=== PATIENT | male | born 1975 | race Caucasian/White ===

== ENCOUNTER 2019-10-12 14:52 | Emergency (ER) | payer BC ==
[~2019-10-12] VITALS: Ht 180.3 cm; Wt 93.0 kg
[2019-10-12 15:00] VITALS: BP 124/70
--- NOTE | 2019-10-12 16:00 | NUR ---
Patient transferred to bed 4 via wheelchair. RN evaluating patient at bedside.
--- NOTE | 2019-10-12 16:24 | NUR ---
C/O NUMBNESS AND THINGLING TO HANDS, FEEET, AND FACE X 1 1/2HR AGO. LUNG SOUNDS CLEAR ALL THORUGHOUT. PT VOMITTED ONCE. ABD IS SOFT, ROUND, NONTENDER. CAP REFILL < 3. CMS INTACT ON BUE AND BLE. VSS. NO SOB OR CHEST TIGHTNESS PRESENT. SKIN IS NORMAL, WARM TO TOUCH. DENIES ANY PAIN. A & O X4. STEADY GAIT. NKA. PMH: PREDIABETIC, HIGH CHOLESTEROL, HYPOTHYROID.
[2019-10-12] MEDS ORDERED: ACETAMINOPHEN 120 MG SUPP RC ONE (16:50)
[2019-10-12 16:59] LABS: BASOPHILS # (AUTO) 0.1 K/uL (0.00-0.22); BASOPHILS % (AUTO) 0.4 % (0.0-2.0); EOSINOPHILS % (AUTO) 0.1 % (0.0-4.0); HEMATOCRIT 44.9 % (36-52); HEMOGLOBIN 14.8 g/dL (12.0-18.0); LYMPHOCYTES # (AUTO) 1.6 K/uL (2.0-11.5); LYMPHOCYTES % (AUTO) 13.6 % (20.5-51.1); MEAN CORPUSCULAR HEMOGLOBIN 31 pg (27-31); MEAN CORPUSCULAR HGB CONC 33 g/dL (33-37); MEAN CORPUSCULAR VOLUME 94.6 fL (80-94); MONOCYTES # (AUTO) 0.6 K/uL (0.8-1.0); MONOCYTES % (AUTO) 5.2 % (1.7-9.3); NEUTROPHILS # (AUTO) 9.4 K/uL (1.8-7.7); NEUTROPHILS % (AUTO) 80.7 % (42.2-75.2); PLATELET COUNT (AUTO) 308 K/uL (140-450); RED BLOOD CELL COUNT(AUTO) 4.75 MIL/uL (4.20-6.10); RED CELL DISTRIBUTION WIDTH 13.3 % (11.6-13.7); WHITE BLOOD COUNT (AUTO) 11.6 K/uL (4.8-10.8)
[2019-10-12 17:18] LABS: CARBON DIOXIDE 27.3 mmol/L (21-32); CREATININE 1.2 mg/dL (0.7-1.3); POTASSIUM 4.3 mmol/L (3.5-5.1)
[2019-10-12 18:02] VITALS: BP 124/70
--- NOTE | 2019-10-12 18:03 | NUR ---
Patient discharged with v/s stable. Written and verbal after care instructions given and explained. Patient verbalized understanding. Ambulatory with steady gait. All questions addressed prior to discharge. Advised to follow up with PMD.
== END 2019-10-12 18:03 | disposition home or self-care (01) ==
LOC: MED 14:52
DX: R42 Dizziness and giddiness (principal); R06.02 Shortness of breath; R20.0 Anesthesia of skin; E78.00 Pure hypercholesterolemia, unspecified; Z90.49 Acquired absence of other specified parts of digestive tract
CPT/HCPCS: 36415; 80048; 85025; 99283